=== PATIENT | male | born 1945 | race Caucasian/White ===

== ENCOUNTER 2023-02-01 12:28 | Outpatient (AMB) | payer MEDICARE, SELFPAY ==
--- NOTE | 2023-02-01 12:32 | A.OFFPC_ITS ---
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: No Accompanied by: Spouse Allergies No Known Allergies [No Known Allergies*] Allergy (Verified 02/01/23 12:43) Medication List - Last Reconciled 02/01/23 by Janice Landaverde MD aspirin (Adult Low Dose Aspirin) 81 mg PO DAILY 90 days Tobacco use date assessed: 02/01/23 Fall risk assessment: 1 Fall in past year Last assessed Fall Risk: 02/01/23 Dental Screening Dental Screen Date: 02/01/23 Did you have a dental visit in the last 12 months?: No Did you have a dental problem in the last 6 months where you did not have access to dental care?: No Was dental information given to patient?: Patient declined HPI HPI Comments History of Present Illness Details This is a 77-year-old male with history of stroke with right hemiparesis accompanied by partner that comes today for his physical exam. He is in a wheelchair due to his right-sided weakness. No chest pain or shortness of breath. [facility] Medical History (Updated 01/23/22 @ 13:25 by Janice Landaverde MD) Right hemiparesis Wheelchair bound CVA (cerebral vascular accident) Surgical History No pertinent past surgical history Family History Father No problems noted. Mother Diabetes mellitus Social History Housing: Apartment Alcohol intake: never Patient Tobacco Use Status: Former Tobacco user Tobacco use type: Cigarette e-Cigarette/Vaping Use: Never Used Second Hand Smoke Exposure: No service: No Current occupational status: disabled Cognitive needs: Yes (Wheelchair) Hearing needs: No Vision needs: Yes (Glasses) Questionnaire PHQ-9 Over the last 2 weeks, how often have you been bothered by any of the following problems? 1. Little interest or pleasure in doing things: not at all 2. Feeling down, depressed, or hopeless: not at all 3. Trouble falling or staying asleep, or sleeping too much: not at all 4. Feeling tired or having little energy: not at all 5. Poor appetite or overeating: not at all 6. Feeling bad about yourself - or that you are a failure or have let yourself or your family down: not at all 7. Trouble concentrating on things, such as reading the newspaper or watching television: not at all 8. Moving or speaking so slowly that other people could have noticed. Or the opposite - being so fidgety or restless that you have been moving around a lot more than usual: not at all 9. Thoughts that you would be better off or of hurting yourself in some way: not at all Total score: 0 Depression Screening Interpretation: Negative 20035 - PHQ-9 Billing: Yes Source: Developed by Drs. Srini Hoffmann, Ingrid Gimenez, Simon Bernabe and colleagues, with an educational adryan from [employer]. Thrive Questionnaire Date Thrive assessed: 02/01/23 I am a: Patient What is your living situation today?: I have a steady place to live Within the past 12 months, did the food you bought not last and you didn't have the money to get more?: Never true Within the past 12 months, did you worry whether your food would run out before you got money to buy more?: Never true Do you have trouble paying for medicines?: No Do you have trouble getting transportation to medical appointments?: No Do you have trouble paying your heating and electricity bill?: No Do you have trouble taking care of your child, family member or friend?: No Do you have trouble with day-to-day activities such as bathing, preparing meals, shopping, managing finances, etc.?: No Are you currently unemployed and looking for a job?: No Are you interested in more education?: No Please select the resources that you would like help with: None Currently or been in a relationship where the following occur: no concerns re ported AUDIT C Alcohol Use Questionnaire (AUDIT-C) 1. How often do you have a drink containing alcohol?: Never Total Score: 0 Score Reviewed/Action Taken: No ELIZABETH-7 AMB Questionnaire ELIZABETH-7 Date ELIZABETH - 7 assessed: 02/01/23 Feeling nervous, anxious, or on edge: 0 = Not at all Not being able to stop or control worryin = Not at all Worrying too much about different things: 0 = Not at all Trouble relaxin = Not at all Being so restless that it is hard to sit still: 0 = Not at all Becoming easily annoyed or irritable: 0 = Not at all Feeling afraid as if something awful might happen: 0 = Not at all Total ELIZABETH-7 score (0-4 normal; 5-9 mild; 10-14 moderate; 15-21 severe): 0 Source: Developed by Drs. Srini Hoffmann, Ingrid Gimenez, Simon Bernabe and colleagues, with an educational adryan from [employer]. ELIZABETH-7 Assessment Billing ELIZABETH-7 Assessment Tool: ELIZABETH-7 Assessment 47147 Review of Systems Const All systems reviewed & are unremarkable except as noted in HPI and below Eyes Reports no additional complaints, Denies change in vision and Denies other visual disturbances Card Denies chest pain at rest, Denies chest pain with activity, Denies edema, Denies irregular heart rhythm, Denies claudication, Denies dyspnea, Denies dyspnea on exertion, Denies orthopnea, Denies paroxysmal nocturnal dyspnea and Denies slow heart rate Resp Denies cough, Denies dyspnea and Denies dyspnea on exertion GI Denies abdominal pain, Denies change in bowel habits, Denies excessive flatus, Denies nausea and Denies vomiting Denies urinary hesitancy, Denies urinary incontinence and Denies urinary urgency Musc Reports abnormal gait, Denies atrophy, Denies deformity and Denies limited range of motion Skin/Breast Denies bleeding lesions, Denies changing lesions and Denies rash Neuro Reports abnormal gait, Denies lack of coordination and Reports focal weakness Physical exam (Primary Care) Vital Signs: Last Vital Signs BP 120/78 02/01/23 12:34 BMI result Body Mass Index 27.3 Tobacco/Smoking Status: Tobacco use Status Tobacco use date assessed 02/01/23 02/01/23 12:42 Patient Tobacco Use Status Former Tobacco user 02/01/23 12:42 Tobacco use type Cigarette 02/01/23 12:42 e-Cigarette/Vaping Use Never Used 02/01/23 12:42 PHQ-9: PHQ-9 Score PHQ-9: Total score 0 02/01/23 12:42 Depression Screening Interpretation: Negative Thrive Assessment: Date of Thrive Assessment Date Thrive assessed 02/01/23 02/01/23 12:42 Currently or been in a relationship where the following occur: no concerns reported Const Orientation/consciousness: patient oriented x3 Limitations: wheelchair HENMT Head: Yes normal to inspection, Yes normocephalic and Yes atraumatic Ears: external ears normal Eyes General: appearance normal, both eyes and all related structures Eyelids: Yes eyelids normal Conjunctivae: conjunctivae normal Neck Neck: Yes normal visual inspection and Yes supple Resp Effort & Inspection: normal respiratory effort Auscultation: clear to auscultation bilaterally Cardio Jugular venous distension: no JVD Rate: regular rate Rhythm: regular rhythm Heart sounds: S1 normal heart sound present and S2 normal heart sound present GI Inspection: Yes normal to inspection Palpation (GI): Soft to palpation and nontender Auscultation: normal bowel sounds Skin General skin exam: no rashes or lesions noted Neuro General: patient oriented x3 Motor exam (neuro): Abnormal motor strength present (4/5 right strength, 5/5 left strength) Psych Appearance: grossly normal Assessment and Plan Assessment & Plan (1) Encounter for physical examination: Code(s): Z00.00 - Encounter for general adult medical examination without abnormal findings Plan: Repeat in a year (2) Right hemiparesis: Code(s): G81.91 - Hemiplegia, unspecified affecting right dominant side Plan: Continue the use of wheelchair as needed. (3) CVA (cerebral vascular accident): Comment: 1996 Code(s): I63.9 - Cerebral infarction, unspecified Qualifiers: CVA mechanism: unspecified Qualified Code(s): I63.9 - Cerebral infarction, unspecified Plan: Continue aspirin for secondary prophylaxis. Coding Level of Care Code Est Pt Prev Care >65y(11829) Diagnoses Encounter for physical examination Z00.00 Right hemiparesis G81.91 Cerebrovascular accident (CVA), unspecified mechanism I63.9 CVA mechanism: unspecified Additional Codes ELIZABETH-7 Assessment Billing - ELIZABETH-7 Assessment Tool: ELIZABETH-7 Assessment 33612 ( [id number]) Time Spent (min) 31
[2023-02-01 12:34] VITALS: BP 120/78; BMI 27.3
== END 2023-02-01 12:50 | disposition home or self-care (01) ==
PROVIDERS: Visit Provider Internal Medicine
DX: Z00.00 Encounter for general adult medical examination without abnormal findings (principal); G81.91 Hemiplegia, unspecified affecting right dominant side; I63.9 Cerebral infarction, unspecified
CPT/HCPCS: 99397

== ENCOUNTER 2024-05-29 13:37 | Outpatient (AMB) | payer MEDICARE, SELFPAY ==
--- NOTE | 2024-05-29 13:39 | MHC.PC.OV ---
Vital Signs 05/29/24 13:42 Height 5 ft 0.5 in Weight 138 lb 7.205 oz BMI 26.6 BP 112/72 Blood Pressure Location Lt brachial Position Sitting Intake Visit Reasons: Annual Exam Intake Note: Patient here for a physical exam Golf Course Keeper Required: Yes Golf Course Keeper Language: Floral Designer Name: Janice Landaverde MD Information Interpreted: non-clinical & clinical Accompanied by: Spouse Allergies No Known Allergies [No Known Allergies*] Allergy (Verified 05/29/24 13:45) Tobacco use date assessed: 05/29/24 Fall risk assessment: No Falls in past year Last assessed Fall Risk: 05/29/24 Dental Screening Dental Screen Date: 05/29/24 Did you have a dental visit in the last 12 months?: No Did you have a dental problem in the last 6 months where you did not have access to dental care?: No Was dental information given to patient?: Patient has dentist HPI HPI Comments History of Present Illness Details The patient is an 78-year-old male presenting for his physical exam. He has symptoms suggestive of an upper respiratory infection. These symptoms include a mild cold that commenced without a specific inciting event. The patient denies experiencing substantial aggravation from cold weather as he ensures proper insulation with clothing such as coats. Despite feeling cold locally, he denied any significant exposure or adverse impact associated. Historically, the patient's physical examination exhibited minimal deviations, as previous laboratory investigations indicated normalcy. Additionally, the family history reveals parental prediseases including diabetes in the mother and prior smoking habits, which the patient has since ceased. No alcohol consumption was acknowledged. In consideration of the patient's general health status, he enjoys routine health screenings such as vaccinations and maintains only one regular medication: aspirin. - Up-to-date with all vaccinations, including pneumococcal vaccination at 76 years of age and tetanus vaccine within the last decade. - Parents with a history of diabetes; however, the patient has well-maintained blood glucose levels currently. - Routine use of aspirin for secondary prophylaxis of CVA. [facility] Medical History Right hemiparesis Wheelchair bound CVA (cerebral vascular accident) Surgical History No pertinent past surgical history Family History Father No problems noted. Mother Diabetes mellitus Social History Housing: Apartment Alcohol intake: never Patient Tobacco Use Status: Former Tobacco user Tobacco use type: Cigarette e-Cigarette/Vaping Use: Never Used Second Hand Smoke Exposure: No service: No Current occupational status: disabled Cognitive needs: Yes (Wheelchair) Hearing needs: No Vision needs: Yes (Glasses) Questionnaire PHQ-9 Over the last 2 weeks, how often have you been bothered by any of the following problems? 1. Little interest or pleasure in doing things: nearly every day 2. Feeling down, depressed, or hopeless: not at all 3. Trouble falling or staying asleep, or sleeping too much: not at all 4. Feeling tired or having little energy: not at all 5. Poor appetite or overeating: not at all 6. Feeling bad about yourself - or that you are a failure or have let yourself or your family down: not at all 7. Trouble concentrating on things, such as reading the newspaper or watching television: nearly every day 8. Moving or speaking so slowly that other people could have noticed. Or the opposite - being so fidgety or restless that you have been moving around a lot more than usual: nearly every day 9. Thoughts that you would be better off or of hurting yourself in some way: nearly every day Total score: 12 Depression Screening Interpretation: Positive Depression Screening Follow-up: Existing condition, Follow-up Visit Requested and Declines treatment Depression Screening Done: Yes 64237 - PHQ-9 Billing: Yes Source: Developed by Drs. Srini Hoffmann, Ingrid Gimenez, Simon Bernabe and colleagues, with an educational adryan from [employer]. Thrive Questionnaire Date Thrive assessed: 05/29/24 I am a: Patient What is your living situation today?: I have a steady place to live Within the past 12 months, did the food you bought not last and you didn't have the money to get more?: I choose not to answer this question Within the past 12 months, did you worry whether your food would run out before you got money to buy more?: I choose not to answer this question Do you have trouble paying for medicines?: No Do you have trouble getting transportation to medical appointments?: No Do you have trouble paying your heating and electricity bill?: No Do you have trouble taking care of your child, family member or friend?: No Do you have trouble with day-to-day activities such as bathing, preparing meals, shopping, managing finances, etc.?: No Are you currently unemployed and looking for a job?: Yes Are you interested in more education?: No Please select the resources that you would like help with: None Currently or been in a relationship where the following occur: I choose not to answer THRIVE Score: 0 AUDIT C Alcohol Use Questionnaire (AUDIT-C) 1. How often do you have a drink containing alcohol?: Never Total Score: 0 Score Reviewed/Action Taken: No ELIZABETH-7 AMB Questionnaire ELIZABETH-7 Date ELIZABETH - 7 assessed: 05/29/24 Feeling nervous, anxious, or on edge: 0 = Not at all Not being able to stop or control worryin = Not at all Worrying too much about different things: 0 = Not at all Trouble relaxin = Not at all Being so restless that it is hard to sit still: 0 = Not at all Becoming easily annoyed or irritable: 0 = Not at all Feeling afraid as if something awful might happen: 0 = Not at all Total ELIZABETH-7 score (0-4 normal; 5-9 mild; 10-14 moderate; 15-21 severe): 0 Source: Developed by Drs. Srini Hoffmann, Ingrid Gimenez, Simon Bernabe and colleagues, with an educational adryan from [employer]. ELIZABETH-7 Assessment Billing ELIZABETH-7 Assessment Tool: ELIZABETH-7 Assessment 62659 Review of Systems Const All systems reviewed & are unremarkable except as noted in HPI and below Card Denies chest pain at rest, Denies chest pain with activity, Denies edema, Denies irregular heart rhythm, Denies claudication, Denies dyspnea, Denies dyspnea on exertion, Denies orthopnea, Denies paroxysmal nocturnal dyspnea and Denies slow heart rate Resp Denies cough, Denies dyspnea and Denies dyspnea on exertion GI Denies abdominal pain, Denies change in bowel habits, Denies excessive flatus, Denies nausea and Denies vomiting Physical exam (Primary Care) Vital Signs: Last Vital Signs BP 112/72 05/29/24 13:42 BMI result Body Mass Index 26.6 Tobacco/Smoking Status: Tobacco use Status Tobacco use date assessed 05/29/24 05/29/24 13:46 Patient Tobacco Use Status Former Tobacco user 05/29/24 13:41 Tobacco use type Cigarette 05/29/24 13:41 e-Cigarette/Vaping Use Never Used 05/29/24 13:41 PHQ-9: PHQ-9 Score PHQ-9: Total score 12 05/29/24 14:39 Depression Screening Interpretation: Positive Depression Screening Follow-up: Existing condition, Follow-up Visit Requested and Declines treatment Thrive Assessment: Date of Thrive Assessment Date Thrive assessed 05/29/24 05/29/24 13:41 Currently or been in a relationship where the following occur: I choose not to answer HENMT Head: Yes normal to inspection, Yes normocephalic and Yes atraumatic Ears: external ears normal Eyes General: appearance normal, both eyes and all related structures Eyelids: Yes eyelids normal Conjunctivae: conjunctivae normal Neck Neck: Yes normal visual inspection and Yes supple Resp Effort & Inspection: normal respiratory effort Auscultation: clear to auscultation bilaterally Cardio Jugular venous distension: no JVD Rate: regular rate Rhythm: regular rhythm Heart sounds: S1 normal heart sound present and S2 normal heart sound present GI Inspection: Yes normal to inspection Palpation (GI): Soft to palpation and nontender Auscultation: normal bowel sounds Skin General skin exam: no rashes or lesions noted Neuro Gait exam (Neuro): Assisted gait required Gait assisted method: wheelchair bound Motor exam (neuro): Abnormal motor strength present (4/5 right side, 5/5 left side) Extrem General: Yes full ROM Psych Appearance: grossly normal Office Procedures Flu Questionnaire Does the patient have a severe egg allergy?: No Immunizations Fluarix Triv [id number] (PF) 45 mcg (15 mcg x 3)/0.5 mL IM syringe Performing Provider: Janice Landaverde MD [facility] Documented (not given) by: ASHWIN Daugherty on 05/29/24 14:39 Reason Not Given: Not Given Coding Level of Care Code Est Pt Level 3 (45053) Est Pt Prev Care >65y(80969) Diagnoses Encounter for physical examination Z00.00 Right hemiparesis G81.91 Cerebrovascular accident (CVA), unspecified mechanism I63.9 CVA mechanism: unspecified URI (upper respiratory infection) J06.9 Additional Codes ELIZABETH-7 Assessment Billing - ELIZABETH-7 Assessment Tool: ELIZABETH-7 Assessment 81960 ([id number]) PHQ-9 - 28464 - PHQ-9 Billing: Yes ([id number]) Time Spent (min) 34 Assessment & Plan Assessment & Plan (1) Encounter for physical examination: Code(s): Z00.00 - Encounter for general adult medical examination without abnormal findings Category: Medical (2) Right hemiparesis: Code(s): G81.91 - Hemiplegia, unspecified affecting right dominant side Category: Medical (3) CVA (cerebral vascular accident): Comment: 1996 Code(s): I63.9 - Cerebral infarction, unspecified Category: Medical Qualifiers: CVA mechanism: unspecified Qualified Code(s): I63.9 - Cerebral infarction, unspecified (4) URI (upper respiratory infection): Code(s): J06.9 - Acute upper respiratory infection, unspecified Category: Medical Plan - Continue monitoring vital signs and general health, given the absence of significant illness symptoms. - Encourage maintaining current aspirin regimen due to cardiovascular benefits. - Discuss ongoing self-management strategies regarding depressive symptoms and emotional well-being, despite no present need for active therapy or counseling. Patient was informed and verbally consented to the use of an ambient scribe for clinic note documentation during this visit. I discussed the patient's present symptoms and confirmed my observations corresponded with a mild upper respiratory infection, likely viral in etiology. The patient's hypertension is stable, managed under supervision and guided by his adherence to daily aspirin use. Given his thorough vaccine history, further booster doses remain unnecessary at present. I advised continuing vigilant health monitoring, ensuring proper hydration, and engaging in regular check-ups every six months or as needed. Specific discussion about lab results revealed stable parameters negating the necessity for immediate diagnostic follow-ups unless symptomatic changes emerge. I addressed possible emotional health fluctuations but acknowledged his current stance against therapeutic interventions. Orders: Orders Influenza [id number] Immunization Today Z23 - Encounter for immunization Medications: New doxycycline hyclate 100 mg PO BID 10 caps 0RF 5 days Refilled aspirin (Adult Low Dose Aspirin) 81 mg PO DAILY 90 tabs 3RF 90 days I63.9 - Cerebral infarction, unspecified Patient Instructions: - Keep hydrated and monitor respiratory symptoms, seeking medical advice if they exacerbate. - Continue aspirin regimen as advised. - Maintain regular follow-ups at six-month intervals unless symptoms dictate otherwise. - Monitor emotional well-being, contacting if feelings of depression arise.
[2024-05-29 13:42] VITALS: BP 112/72; BMI 26.6
== END 2024-05-29 14:10 | disposition home or self-care (01) ==
PROVIDERS: PCP Internal Medicine; Visit Provider Internal Medicine
DX: Z00.00 Encounter for general adult medical examination without abnormal findings (principal); G81.91 Hemiplegia, unspecified affecting right dominant side; I63.9 Cerebral infarction, unspecified; J06.9 Acute upper respiratory infection, unspecified; Z23 Encounter for immunization

== ENCOUNTER → 2024-05-29 13:37 | Outpatient (BNVA) | payer MEDICARE, SELFPAY | PROVIDERS: PCP Internal Medicine; Visit Provider Internal Medicine | DX: Z00.00 Encounter for general adult medical examination without abnormal findings (principal); G81.91 Hemiplegia, unspecified affecting right dominant side; I63.9 Cerebral infarction, unspecified; J06.9 Acute upper respiratory infection, unspecified | CPT/HCPCS: 96127; 99212; 99397 ==